=== PATIENT | female | born 1955 | race Caucasian/White ===

== ENCOUNTER 2018-09-02 18:58 | Emergency (ER) | payer MEDICARE, MEDICAID ==
[~2018-09-02] VITALS: Ht 170.2 cm; Wt 102.2 kg
[2018-09-02] MEDS ORDERED: ALBUTEROL/IPRATROPIUM 2.5MG/0.5MG, 3 ML NPPB SCH (19:30)
[2018-09-02 19:49] LABS: BASOPHILS # (AUTO) 0.05 x10^3/uL (0-0.1); BASOPHILS % (AUTO) 1 % (0-1); EOSINOPHILS # (AUTO) 0.24 x10^3/uL (0-0.4); EOSINOPHILS % (AUTO) 3 % (1-7); LYMPHOCYTES # (AUTO) 1.51 x10^3/uL (1-3.4); LYMPHOCYTES % (AUTO) 19 % (22-44); MD NO; MEAN CORPUSCULAR HEMOGLOBIN 29.6 pg (27.0-34.8); MEAN CORPUSCULAR HGB CONC 33.2 g/dL (32.4-35.8); MEAN CORPUSCULAR VOLUME 89.2 fL (80-100); MEAN PLATELET VOLUME 8.1 fL (7.4-10.4); MONOCYTES # (AUTO) 1.04 x10^3/uL (0.2-0.8); MONOCYTES % (AUTO) 13 % (2-9); NEUTROPHILS # (AUTO) 5.02 x10^3/uL (1.8-6.8); NEUTROPHILS % (AUTO) 64 % (42-75); PLATELET COUNT 291 x10^3/uL (130-400); RED BLOOD COUNT 4.19 x10^6/uL (3.82-5.3); RED CELL DISTRIBUTION WIDTH 15.4 % (9.6-15.2)
[2018-09-02 19:58] LABS: ALANINE AMINOTRANSFERASE 33 U/L (12-78); ALBUMIN 3.1 g/dL (3.4-5.0); ANION GAP 5 mmol/L (5-15); CALCIUM 8.4 mg/dL (8.5-10.1); CHLORIDE 108 mmol/L (98-107); CREATININE 1.32 mg/dL (0.55-1.02)
[2018-09-02 20:02] LABS: ALKALINE PHOSPHATASE 147 U/L (45-117); BILIRUBIN,TOTAL 0.1 mg/dL (0.2-1.0); TOTAL PROTEIN 7.1 g/dL (6.4-8.2); TROPONIN I < 0.015 ng/mL (0.000-0.045)
--- NOTE | 2018-09-02 20:21 | NUR ---
PT AMB W/ STEADY GAIT TO ROOM AT THIS TIME.
[2018-09-02 20:27] VITALS: BP 143/76
--- NOTE | 2018-09-02 20:31 | NUR ---
FIRST CONTACT W/ PT. PRESENTS TO ED C/O SOBx3 DAYS W/ ASSOCIATED HOARSE VOICE, SORE THROAT, AND PERSISTENT--DRY--COUGH. STATES FAMILY HAS BEEN SICK IN HOUSE W/ SIMILAR S/S. DENIES ANY CP. DENIES ANY FEVERS, GI/ SYMPTOMS. MONITORING APPLIED. VSS. CALL LIGHT WITHIN REACH. AWAITING MD ASSESSMENT.
[2018-09-02] MEDS ORDERED: AZITHROMYCIN 250 MG TABLET ONE (21:16)
--- NOTE | 2018-09-02 21:19 | NUR ---
MEDICATED PER AUG. TBDC. AWAITING D/C PAPERWORK.
[2018-09-02] MEDS ORDERED: AZITHROMYCIN 500 MG TABLET PO ONE (21:30)
== END 2018-09-02 21:35 | disposition home or self-care (01) ==
LOC: ED 21:29
DX: J44.1 Chronic obstructive pulmonary disease with (acute) exacerbation (principal); J02.8 Acute pharyngitis due to other specified organisms; B97.89 Other viral agents as the cause of diseases classified elsewhere; I10 Essential (primary) hypertension; E11.9 Type 2 diabetes mellitus without complications; Z87.891 Personal history of nicotine dependence
CPT/HCPCS: 36415; 71045; 80053; 84484; 85025; 93005; 94640; 99284; J7512; J7620

== ENCOUNTER 2019-05-20 14:22 | Emergency (ER) | payer MEDICARE, MEDICAID ==
[~2019-05-20] VITALS: Ht 170.2 cm; Wt 97.0 kg
--- NOTE | 2019-05-20 14:35 | NUR ---
PT C/O COUGH SINCE FRIDAY AND LEFT FLANK PAIN SINCE FRIDAY. FLANK PAIN DESCRIBED STABBING. COUGH HAS PRODUCED GREEN MUCUS. CONNECTED TO MONITORING. CALL LIGHT IN REACH.
--- NOTE | 2019-05-20 14:44 | NUR ---
IV START. LABS DRAWN.
--- NOTE | 2019-05-20 15:07 | NUR ---
PT AMBULATED TO RESTROOM WITH STEADY GAIT TO PROVIDE URINE SAMPLE. UA COLLECTED AND SENT TO LAB.
[2019-05-20 15:10] LABS: BASOPHILS # (AUTO) 0.02 x10^3/uL (0-0.1); BASOPHILS % (AUTO) 0 % (0-1); EOSINOPHILS % (AUTO) 3 % (1-7); LYMPHOCYTES # (AUTO) 0.76 x10^3/uL (1-3.4); LYMPHOCYTES % (AUTO) 11 % (22-44); MD NO; MEAN CORPUSCULAR VOLUME 81.3 fL (80-100); MEAN PLATELET VOLUME 7.5 fL (7.4-10.4); MONOCYTES % (AUTO) 11 % (2-9); NEUTROPHILS # (AUTO) 5.29 x10^3/uL (1.8-6.8); NEUTROPHILS % (AUTO) 75 % (42-75); PLATELET COUNT 446 x10^3/uL (130-400); RED BLOOD COUNT 4.72 x10^6/uL (3.82-5.3); RED CELL DISTRIBUTION WIDTH 14.9 % (9.6-15.2)
[2019-05-20 15:18] LABS: ALBUMIN 3.3 g/dL (3.4-5.0); ANION GAP 4 mmol/L (5-15); CALCIUM 9.3 mg/dL (8.5-10.1); CHLORIDE 103 mmol/L (98-107); CREATININE 0.99 mg/dL (0.55-1.02)
[2019-05-20 15:22] LABS: MICROSCOPIC AUTO
[2019-05-20 15:30] LABS: RAPID INFLUENZA A Negative (Negative)
[2019-05-20 15:31] LABS: RAPID INFLUENZA B Negative (Negative)
[2019-05-20 15:55] LABS: CULTURE INDICATED? YES
--- NOTE | 2019-05-20 16:04 | NUR ---
ALL RESULTS ARE BACK AT THIS TIME. CHART UP FOR RECHECK.
[2019-05-20 16:49] VITALS: BP 130/57
== END 2019-05-20 16:56 | disposition home or self-care (01) ==
LOC: ED 16:50
DX: B34.9 Viral infection, unspecified (principal); J00 Acute nasopharyngitis [common cold]; N30.00 Acute cystitis without hematuria
CPT/HCPCS: 36415; 71045; 80048; 81001; 82040; 85025; 87086; 87400; 99284

== ENCOUNTER 2019-12-13 15:25 | Emergency (ER) | payer MEDICARE, MEDICAID ==
[~2019-12-13] VITALS: Ht 165.1 cm; Wt 98.9 kg
[2019-12-13 15:33] VITALS: BP 168/85
--- NOTE | 2019-12-13 15:48 | NUR ---
ONLINE MERCHANDISING MANAGER: PT AMBULATORY WITH STEADY GAIT TO ROOM AT THIS TIME. TEZ
== END 2019-12-13 16:50 | disposition home or self-care (01) ==
LOC: ED 16:40
DX: J02.9 Acute pharyngitis, unspecified (principal); E11.9 Type 2 diabetes mellitus without complications; J44.9 Chronic obstructive pulmonary disease, unspecified; I10 Essential (primary) hypertension
CPT/HCPCS: 99283